=== PATIENT | male | born 1995 | race Caucasian/White ===

== ENCOUNTER 2020-05-15 23:21 | Emergency (ER) | payer OTHER ==
--- NOTE | 2020-05-15 23:37 | PDOC ---
History of Present Illness - General Stated Complaint: EAR PROBLEM Time Seen by Provider: 05/15/20 23:30 History Source: Patient Exam Limitations: No Limitations - History of Present Illness Initial Comments: 24 year-old male no significant past medical history complaining of right ear pain for 1 week. Patient states that he swims almost every day in the pool submerging his head. He noticed pain to the right ear with mild discharge as well as pain while listening to music with no changes in hearing. Pt otherwise denies: fevers, chills, syncope, lightheadedness, dizziness, headaches, neck pain, chest pain, shortness of breath, palpitations, back pain, abdominal pain, nausea, vomiting, diarrhea, constipation. Past History - Medical History Allergies/Adverse Reactions: Allergies Allergy/AdvReac Type Severity Reaction Status Date / Time No Known Allergies Allergy Verified 11/18/16 22:28 Home Medications: Ambulatory Orders Naproxen [Naprosyn -] 500 mg PO BID PRN #20 tablet 11/18/16 Oxycodone HCl/Acetaminophen [Percocet 5-325 mg Tablet] 1 tab PO Q6H PRN #12 tablet MDD 4 11/18/16 Amoxicillin 875 mg PO BID #10 tablet 05/15/20 Ciprofloxacin HCl/Dexameth [Ciprodex Otic Suspension] 4 drop AD BID #1 bottle 05/15/20 Asthma: Yes - Immunization History Immunization Up to Date: Yes - Psycho-Social/Smoking History Smoking History: Never smoked Have you smoked in the past 12 months: No Review of Systems - Review of Systems Constitutional: No: Chills, Fever, Night Sweats HEENTM: Yes: Ear Pain, Ear Discharge. No: Eye Pain, Double Vision, Nose Pain, Throat Pain Respiratory: No: Cough, Shortness of Breath Cardiac (ROS): No: Chest Pain ABD/GI: No: Abdominal Distended : No: Burning, Dysuria *Physical Exam - Physical Exam 05/15/20 23:55 Gen: AAOx 3, no acute distress, comfortable, no signs of respiratory distress HNT: atraumatic, normocephalic with no laceration or contusion. Nasal mucosa without erythema. Oropharynx without erythema or exudates. Mucous membranes moist. R Ear: TTP to tragus and pinna mild swelling and erythema in canal with erythema to TM, hearing intact L ear: no ttp no canal swelling TM with cone of light no erythema EYES: PERRL, EOM intact, conjunctiva pink NECK: supple; trachea midline; no JVD, no lymphadenopathy, or thyromegaly CV: RRR no murmurs, gallops, or rubs. CHEST: CTA b/l no wheezing, rales or rhonchi ABD: +BS/ND. no TTP; soft, no rebound, no guarding EXTREMITY: no cyanosis or erythema. 2+ dorsalis pedis, posterior tibial, and radial pulse. No pedal edema; no calf swelling or tenderness SKIN: no rash, warm and dry, no diaphoresis HEME: no purpura or ecchymosis NEURO: normal speech, CN II-XII intact, sensation intact, normal gait, no cerebellar deficits MS: 5/5 strength in all extremities, FROM intact in all extremities. Medical Decision Making - Medical Decision Making 05/15/20 23:56 24-year-old male right ear pain Vital signs stable Otitis media and externa on right ear exam Amoxicillin and Ciprodex sent to patient's preferred pharmacy instructed patient to take ibuprofen for pain relief and to follow-up with PCP Patient instructed to complete antibiotics even if feeling better Patient appears well is safe and stable for discharge Supportive care instructions explained and given to pt. Reasons to return emergently to ER explained and given. Importance of follow up with PMD and other specialists as indicated stressed to pt. Pt verbalized understanding of instructions. Pt to follow up with PMD in 2 days. Discharge - Discharge Information Problems reviewed: Yes Clinical Impression/Diagnosis: Otitis externa Qualifiers: Otitis externa type: swimmer's ear Chronicity: acute Laterality: right Qualifie d Code(s): H60.331 - Swimmer's ear, right ear Otitis media Qualifiers: Otitis media type: unspecified Chronicity: acute Qualified Code(s): H66.90 - Otitis media, unspecified, unspecified ear Condition: Stable Disposition: HOME - Admission No - Additional Discharge Information Prescriptions: Amoxicillin 875 mg PO BID #10 tablet Ciprofloxacin HCl/Dexameth [Ciprodex Otic Suspension] 4 drop AD BID #1 bottle - Follow up/Referral - Patient Discharge Instructions Patient Printed Discharge Instructions: Ear Infections (Middle Ear) (Alternative Therapy), Otitis Externa Additional Instructions: Follow up with PCP - Post Discharge Activity
[2020-05-15 23:53] VITALS: BP 149/87; PULSE 91; TEMP 98; BMI 39.4
== END 2020-05-15 23:50 | disposition home or self-care (01) ==
LOC: JER 23:21
DX: H60.331 Swimmer's ear, right ear (principal); H66.91 Otitis media, unspecified, right ear
CPT/HCPCS: 99282-25

== ENCOUNTER 2020-05-20 17:29 | Emergency (ER) | payer SELFPAY ==
--- NOTE | 2020-05-20 17:54 | PDOC ---
Rapid Medical Evaluation Medical Evaluation: Allergies Allergy/AdvReac Type Severity Reaction Status Date / Time No Known Allergies Allergy Verified 11/18/16 22:28 05/20/20 17:50 24 yo M denies pmhx c/o R ear pain, seen here for same 4 days ago. completed amoxicillin yesterday, went swimming today. denies n/v/f/d/c, cp, sob. took domenic taminophen 500mg one hour ago. VSS well appearing speaking full sentences A/P: R ear pain fast track for eval
[2020-05-20 17:55] VITALS: BP 118/70; PULSE 87; TEMP 98.3; BMI 39.4
[2020-05-20] MEDS ORDERED: NAPROXEN 500 MG TABLET PO ONE (18:17)
--- NOTE | 2020-05-20 18:20 | PDOC ---
History of Present Illness - General Chief Complaint: Ear Problem Stated Complaint: EAR PROBLEM Time Seen by Provider: 05/20/20 17:58 History Source: Patient Exam Limitations: Clinical Condition - History of Present Illness Initial Comments: 05/20/20 18:28 Patient with no significant past medical history present with mother with complaint of persistent right ear pain and pain around right jaw which has been persistent for a week. Patient was seen 5 days ago for same thing discharged home on Augmentin antibiotics and Ciprodex eardrops which patient report finished yesterday but went again to the pool today and started having severe ear pain. Patient reported increased pain to the right side when opening mouth wide. Denies fever, chills. Denies any other symptoms Is this a multiple visit Asthma Patient?: No Timing/Duration: 1 week Past History - Medical History Allergies/Adverse Reactions: Allergies Allergy/AdvReac Type Severity Reaction Status Date / Time No Known Allergies Allergy Verified 05/20/20 17:54 Home Medications: Ambulatory Orders Oxycodone HCl/Acetaminophen [Percocet 5-325 mg Tablet] 1 tab PO Q6H PRN #12 tablet MDD 4 11/18/16 Amoxicillin 875 mg PO BID #10 tablet 05/15/20 Ciprofloxacin HCl/Dexameth [Ciprodex Otic Suspension] 4 drop AD BID #1 bottle 05/15/20 Naproxen [Naprosyn -] 500 mg PO BID PRN #20 tablet 05/20/20 Asthma: Yes COPD: No - Immunization History Immunization Up to Date: Yes - Psycho-Social/Smoking History Smoking History: Never smoked Have you smoked in the past 12 months: No Information on smoking cessation initiated: No - Substance Abuse Hx (Audit-C & DAST Scrn) How often the patient has a drink containing alcohol: Never Score: In Men: 4 or > Positive; In Women: 3 or > Positive: 0 Screen Result (Pos requires Nsg. Audit-10AR): Negative In the last yr the pt used illegal drug/Rx for NonMed reason: No Score: Yes response is considered Positive: 0 Screen Result (Positive result requires Nsg. DAST-10): Negative Review of Systems - Review of Systems Able to Perform ROS?: Yes Is the patient limited [place]ian proficient: No Constitutional: No: Chills, Fever, Malaise HEENTM: Yes: Symptoms Reported, See HPI, Ear Pain (Right hip pain). No: Eye Pain, Blurred Vision, Tearing, Recent change in vision, Double Vision, Cataracts, Ocular Prothesis, Ear Discharge, Nose Pain, Nose Congestion, Tinnitus, Nose Bleeding, Hearing Loss, Throat Pain, Throat Swelling, Mouth Pain, Dental Problems, Difficulty Swallowing, Mouth Swelling, Other Respiratory: No: Symptoms reported, See HPI, Cough, Orthopnea, Shortness of Breath, SOB with Exertion, SOB at Rest, Stridor, Wheezing, Productive cough, Hemoptysis, Other Cardiac (ROS): No: Symptoms Reported, See HPI, Chest Pain, Edema, Irregular Heart Rate, Lightheadedness, Palpitations, Syncope, Chest Tightness, Other ABD/GI: No: Symptoms Reported, Nausea, Vomiting Musculoskeletal: No: Symptoms Reported Integumentary: No: Symptoms Reported All Other Systems: Reviewed and Negative *Physical Exam - Vital Signs Last Vital Signs Temp Pulse Resp BP Pulse Ox 98.3 F 87 17 118/70 97 05/20/20 17:49 05/20/20 17:49 05/20/20 17:49 05/20/20 17:49 05/20/20 17:49 - Physical Exam 05/20/20 18:30 GENERAL: Well developed, well nourished. Awake and alert. No acute distress. HEENT: Mild tenderness to right TMJ which is worse with occlusion of mouth against resistance. Tympanic membrane normal bilateral. No erythema in bilateral ear canal. No mastoid tenderness bilateral. normocephalic, atraumatic. PERRLA, EOMI. No conjunctival pallor. Sclera are non-icteric. Moist mucous membranes. Oropharynx is clear. NECK: Supple. Full ROM. CARDIOVASCULAR: Regular rate and rhythm. No murmurs, rubs, or gallops. Distal pulses are 2+ and symmetric. PULMONARY: No evidence of respiratory distress. Lungs clear to auscultation bilaterally. No wheezing, rales or rhonchi. MUSCULOSKELETAL Normal range of motion at all joints. SKIN: Warm and dry. Normal capillary refill. No rashes. NEUROLOGICAL: Alert, awake, appropriate. Gait is normal without ataxia. PSYCHIATRIC: Cooperative. Good eye contact. Appropriate mood General Appearance: Yes: Nourished, Appropriately Dressed. No: Apparent Distress Medical Decision Making - Medical Decision Making 05/20/20 18:29 Patient with no significant past medical history present with mother with complaint of persistent right ear pain and pain around right jaw which has been persistent for a week. Patient was seen 5 days ago for same thing discharged home on Augmentin antibiotics and Ciprodex eardrops which patient report finished yesterday but went again to the pool today and started having severe ear pain. Patient reported increased pain to the right side when opening mouth wide. Denies fever, chills. Denies any other symptoms Exam significant for mild tenderness to right TMJ which is well with occlusion of mouth against resistance. Normal ear exam with no ear canal erythema. Tympanic membrane normal bilateral. Patient afebrile. Patient symptoms likely TMJ arthralgia. Naproxen 500 mg p.o. ordered for pain. Patient stable for discharge on naproxen as needed for pain with ENT follow-up Discharge - Discharge Information Problems reviewed: Yes Clinical Impression/Diagnosis: Arthralgia of right temporomandibular joint, Right ear pain Condition: Stable Disposition: HOME - Admission No - Additional Discharge Information Prescriptions: Naproxen [Naprosyn -] 500 mg PO BID PRN #20 tablet PRN Reason: jaw pain - Follow up/Referral Referrals: Tato Ortega MD [Staff Physician] - Nomi Rodriguez MD [Staff Physician] - - Patient Discharge Instructions Patient Printed Discharge Instructions: DI for Temporomandibular Disorder Additional Instructions: Take prescribed medication as prescribed for your pain. Follow-up referred ENT as soon as possible - Post Discharge Activity
[2020-05-20] MEDS ORDERED: NAPROXEN 500 MG TABLET ONE (18:21)
== END 2020-05-20 18:24 | disposition home or self-care (01) ==
LOC: JERFT 17:29 → JER 17:29 → JERFT 18:24
DX: M26.621 Arthralgia of right temporomandibular joint (principal); H92.01 Otalgia, right ear
CPT/HCPCS: 99283-25

== ENCOUNTER 2023-03-24 03:55 | Emergency (ER) | payer OTHER ==
[2023-03-24 04:00] VITALS: BP 166/107; PULSE 76; RESP 18; TEMP 97.8; BMI 38.2
== END 2023-03-24 04:30 | disposition home or self-care (01) ==
LOC: JER 03:55
DX: H92.01 Otalgia, right ear (principal); R68.84 Jaw pain; M26.601 Right temporomandibular joint disorder, unspecified; K08.89 Other specified disorders of teeth and supporting structures
CPT/HCPCS: 99282-25